=== PATIENT | male | born 1970 | race African-American/Black ===

== ENCOUNTER 2019-07-07 07:19 | Day surgery (SDC) | payer OTHER ==
[~2019-07-07] VITALS: Ht 185.4 cm; Wt 71.2 kg
[~2019-07-07 07:19] MED LIST: EFAV1TAB PO
[2019-07-07 08:19] VITALS: Ht 185.4 cm; Wt 71.2 kg
[2019-07-07 09:27] VITALS: BP 127/75; PULSE 45; RESP 18
[2019-07-07] MEDS ORDERED: ATROPINE 1 MG/10 ML SYRINGE ONE ×2 (09:30→10:30)
[2019-07-07] MEDS ORDERED: MIDAZOLAM 1 MG/ML 2 ML INJ ONE ×2 (10:30)
[2019-07-07] MEDS ORDERED: FENTAnyl 50 MCG/ML VIAL ONE (10:31)
[2019-07-07 10:37] VITALS: BP 112/73; PULSE 50; RESP 12
== END 2019-07-07 12:44 | disposition home or self-care (01) ==
LOC: GIL 07:19
PROVIDERS: ATTEND Internal Medicine Gastroenterology
DX: Z12.11 Encounter for screening for malignant neoplasm of colon (principal); Z86.010 Personal history of colon polyps
CPT/HCPCS: 45378; J0461; J2250; J3010